=== PATIENT | female | born 1970 | race Caucasian/White ===

== ENCOUNTER 2021-08-24 13:10 | Emergency (ER) | payer OTHER ==
[2021-08-24 13:58] VITALS: BP 117/72; PULSE 92; TEMP 98.1; BMI 23.8
== END 2021-08-24 14:24 | disposition home or self-care (01) ==
LOC: FER 13:10
DX: L03.114 Cellulitis of left upper limb (principal)
CPT/HCPCS: 73070-TC-LT-FY; 99283-25